=== PATIENT | male | born 1945 | race Caucasian/White ===

== ENCOUNTER → 2016-06-22 | Outpatient (CLI) | payer OTHER, MEDICARE | LOC: BHFA 11:30 | PROVIDERS: ATTEND Internal Medicine Cardiovascular Disease | DX: I25.10 Atherosclerotic heart disease of native coronary artery without angina pectoris (principal) ==

== ENCOUNTER → 2016-06-24 | Outpatient (CLI) | payer OTHER, MEDICARE ==
--- NOTE | 2016-06-24 12:20 | US ---
Ultrasound of the Abdomen Limited History: R 25.10, R07.9, chest pain, right upper quadrant Abdominal pain. Comparison: None. Findings: Biliary system: Gallbladder surgically absent. Common bile duct is 5 mm in diameter which is normal. Liver: Homogeneous in echogenicity without definite focal lesions and measures 15.5 cm in length. Lef t lobe not well visualized. Renal: Right kidney measures 11 x 5 x 5 cm without hydronephrosis. Pancreas: Partially Obscured by bowel gas.. Aorta: Atherosclerotic aorta without aneurysm. Impression: 1. Prior cholecystectomy. 2. Atherosclerotic aorta without aneurysm. 3. No right hydronephrosis. 4. Limited evaluation of the hepatic parenchyma.
== END ==
LOC: FIMAGING 10:40
PROVIDERS: ATTEND Internal Medicine Cardiovascular Disease
DX: R10.11 Right upper quadrant pain (principal); I25.10 Atherosclerotic heart disease of native coronary artery without angina pectoris